=== PATIENT | male | born 1965 | race Caucasian/White ===

== ENCOUNTER → 2016-11-12 | Day surgery (SDC) | payer OTHER ==
[2016-11-12 08:59] LABS: HCT 46.9 % (42.0-52.0); HGB 16.1 g/dl (13.2-18.0); MCH 30.2 pg (25.0-31.0); MCHC 34.3 g/dL (32.0-36.0); MPV 10.5 fL (6.0-9.5); RBC 5.33 M/uL (4.70-6.00); RDW 12.3 % (11.5-14.0); WBC 5.5 K/uL (4.0-10.5)
[2016-11-12 09:00] LABS: ALBUMIN 4.3 g/dL (3.5-5.0); BILIRUBIN - TOTAL 0.5 mg/dL (0.1-1.0); CREATININE 0.9 mg/dL (0.7-1.2); GLOBULIN (CALCULATION) 2.7 g/dL (2.2-4.2); POTASSIUM 4.4 mmol/L (3.5-5.1)
== END | disposition home or self-care (01) ==
LOC: FAS 08:24
PROVIDERS: Surgery
DX: K81.1 Chronic cholecystitis (principal); K82.4 Cholesterolosis of gallbladder; I48.0 Paroxysmal atrial fibrillation; J45.909 Unspecified asthma, uncomplicated; M10.9 Gout, unspecified; I10 Essential (primary) hypertension; F17.200 Nicotine dependence, unspecified, uncomplicated; Z88.1 Allergy status to other antibiotic agents
CPT/HCPCS: 36415; 80053; 88304; 93005; J1100; J1170; J2405; J2704; J2710; J3010; Q9962